=== PATIENT | female | born 1985 | race American Indian/Alaskan Native ===

== ENCOUNTER 2017-03-24 09:39 | Emergency (ER) | payer MEDICAID ==
[2017-03-24 10:09] LABS: Bacteria,Urine 1+ /HPF (Negative); Bilirubin,Urine NEG (Negative); Blood,Urine NEG (Negative); Ketones,Urine TR mg/dL (Negative); Leukocyte Esterase,Urine NEG (Negative); Mucus,Urine FEW /HPF; Nitrite,Urine NEG (Negative); Protein,Urine <15 mg/dL mg/dL (Negative); Urobilinogen,Urine < 2.0 mg/dL (<2.0)
[2017-03-24] MEDS ORDERED: TYLENOL PO ONE (10:38)
--- NOTE | 2017-03-24 10:42 | Emergency Department Report ---
HPI - General Chief Complaint: Vaginal Bleeding Time Seen by Provider: 03/24/17 10:20 - HPI HPI: This is a 32-year-old Afro[place]Citizen Of [place] female presents to the emergency department from home with complaint of some abdominal pain and vaginal bleeding while . The lower abdominal pain has been going on for about 1 week and feels like intermittent spasms. The bleeding has been going on intermittently and a very mild amount for the past 2 months but today the patient began passing clots. She has an SPORTS UMPIRE in [place]. Cannot currently remember her name. She is not taken anything for symptoms prior to presentation. She has a past medical history of non-insulin dependent diabetes. She is currently taking vitamins. With this she is with one child and one previous stillborn. ED Past Medical Hx - Past Medical History Hx Congestive Heart Failure: Yes Hx Diabetes: Yes - Surgical History Past Surgical History?: Yes Additional Surgical History: x2 (2007, 2010) - Social History Smoking Status: Former Smoker Substance Use Type: None - Medications Home Medications: Home Medications Medication Instructions Recorded Confirmed Last Taken Type metFORMIN [Glucophage] 500 mg PO BID #60 tablet 12/02/15 03/24/17 Unknown Rx ED Review of Systems ROS: Stated complaint: VAGINAL BLEED (16WKS PREG) Other details as noted in HPI Comment: All other systems reviewed and negative Constitutional: denies: chills, fever Eyes: denies: eye pain, eye discharge, vision change ENT: denies: ear pain, throat pain Respiratory: denies: cough, shortness of breath, wheezing Cardiovascular: denies: chest pain, palpitations Gastrointestinal: abdominal pain. denies: nausea, vomiting Genitourinary: other (vaginal bleeding). denies: dysuria, discharge Musculoskeletal: denies: back pain, joint swelling, arthralgia Skin: denies: rash, lesions Neurological: denies: headache, weakness, paresthesias Physical Exam - Physical Exam Vital Signs: Vital Signs 03/24/17 03/24/17 09:50 10:00 Temperature 97.8 F Pulse Rate 113 H 101 H Respiratory 25 H 24 Rate Blood Pressure 129/72 Blood Pressure 143/84 [Left] O2 Sat by Pulse 100 100 Oximetry Physical Exam: GENERAL: The patient is well-developed well-nourished. HEENT: Normocephalic. Atraumatic. Extraocular motions are intact. Patient has moist mucous membranes. Pupils equal reactive to light bilaterally. NECK: Supple. Trachea smelling. CHEST/LUNGS: Clear to auscultation. There is no respiratory distress noted. HEART/CARDIOVASCULAR: Regular. There is no tachycardia. There is no gallop rub or murmur. ABDOMEN: Abdomen is soft, nontender to palpation. Patient has normal bowel sounds. There is no abdominal distention. Gravid uterus appears palpable about 3 or 4 cm below the umbilicus. SKIN: There is no rash. There is no edema. There is no diaphoresis. NEURO: The patient is awake, alert, and oriented. The patient is cooperative. The patient has no focal neurologic deficits. The patient has normal speech. MUSCULOSKELETAL: There is no tenderness or deformity. There is no limitation range of motion. There is no evidence of acute injury. ED Course Vital Signs 03/24/17 03/24/17 09:50 10:00 Temperature 97.8 F Pulse Rate 113 H 101 H Respiratory 25 H 24 Rate Blood Pressure 129/72 Blood Pressure 143/84 [Left] O2 Sat by Pulse 100 100 Oximetry ED Medical Decision Making - Lab Data Result diagrams: 03/24/17 10:14 - Radiology Data Radiology results: report reviewed Transvaginal/upset her ultrasound appears consistent with demise. There is a intrauterine fetus seen but there is no motion or heart/ cardiac activity. - Medical Decision Making 32-year-old female presents emergency Department with vaginal bleeding and some lower abdominal cramping. Labs are mostly unremarkable. Transvaginal/ obstetric ultrasound appears consistent with demise. I spoke to the OB/ BUS PERSON on-call who has agreed to see the patient in her office next week. Patient' s labs do show some anemia with hemoglobin of 8 by vital signs are stable and there is no tachycardia or hypoxia and the patient does not have any complaints of chest pain or shortness of breath. Therefore I do not feel the patient requires transfusion at this time. However should been encouraged to return to the emergency department immediately if there is any worsening of the bleeding, worsening of the abdominal pain, development of chest pain or shortness of breath or any acute distress. She understands and agrees the plan. - Differential Diagnosis , threatened miscarriage, spontaneous miscarriage Critical Care Time: No Critical care attestation.: If time is entered above; I have spent that time in minutes in the direct care of this critically ill patient, excluding procedure time. ED Disposition Clinical Impression: demise, Vaginal bleeding Disposition: TO HOME OR SELFCARE Is pt being admited?: No Condition: Stable Instructions: Threatened Miscarriage (ED) Additional Instructions: If you want to and/or able to do so, follow-up with your SPORTS UMPIRE in [place] as soon as possible. If not, I have given you a referral for Dr. Zenobia Ramsay, a local SP[employer]TS [employer]. Call today or tomorrow to make an appointment for next week. Return to the emergency department with any worsening of your bleeding, worsening of your abdominal pain, development of fever, or any acute distress. Referrals: ZENOBIA RAMSAY MD [Staff Physician] - 3-5 Days Time of Disposition: 13:41
[2017-03-24 10:43] LABS: Basophils % (Auto) 0.5 % (0.0-1.8); Eosinophils % (Auto) 0.6 % (0.0-4.3); Hematocrit 24.9 % (30.3-42.9); Mean Corpuscular HGB Conc 32 % (30-34); Mean Corpuscular Volume 73 fl (79-97); Platelet Count 239 K/mm3 (140-440); Red Blood Count 3.39 M/mm3 (3.65-5.03); Red Cell Distribution Width 16.5 % (13.2-15.2); White Blood Count 6.2 K/mm3 (4.5-11.0)
[2017-03-24 10:44] LABS: Mean Corpuscular Hemoglobin 24 pg (28-32)
--- NOTE | 2017-03-24 13:22 | Ultrasound Report ---
COMPLETE OB ULTRASOUND: Gestation: Reynolds Position: breech Amniotic Fluid: None visualized; early Placenta: Questionably fundal Heart Rate: Not detected BPM Cervical length: 3.1 cm (Normal > 3 cm) X It is too early for a anatomical survey BPD: N/A cm = w d HC: 8.8 cm = 14 w 0 d AC: 8.3 cm = 14 w 4 d FL: 1.4 cm = 14 w 0 d HC/AC Ratio: 1.07 Cephalic Index: 66.3 Estimated Weight: N/A grams Clinical age = 16 w 2 d EDC: 09/06/17 US Gest. Age = 14 w 1 d EDC: 09/21/17 Sonography indicates no motion and no heart rate identified. Impression: Suspect demise
[2017-03-24 13:46] VITALS: BP 130/73
== END 2017-03-24 14:42 | disposition home or self-care (01) ==
LOC: ED 09:39
DX: O20.9 Hemorrhage in early pregnancy, unspecified (principal); I50.9 Heart failure, unspecified; E11.9 Type 2 diabetes mellitus without complications; Z3A.00 Weeks of gestation of pregnancy not specified
CPT/HCPCS: 36415; 76805; 81001; 81025; 84702; 85025; 86850; 86900; 86901